=== PATIENT | male | born 1960 | race Caucasian/White ===

== ENCOUNTER → 2018-02-07 | Outpatient (CLI) | payer BC ==
--- NOTE | 2018-02-07 11:37 | US ---
EXAMINATION TYPE: US venous doppler duplex LE LT DATE OF EXAM: 02/07/2018 10:43 AM COMPARISON: NONE CLINICAL HISTORY: Left Lower Ext, Pain/numbness M79.605. Left Posterior knee and calf tingles and fee ls like it going to go to sleep. No redness or swelling. SIDE PERFORMED: Left TECHNIQUE: The lower extremity deep venous system is examined utilizing real time linear array sonog lita with graded compression, doppler sonography and color-flow sonography. VESSELS IMAGED: External Iliac Vein (EIV) Common Femoral Vein Deep Femoral Vein Greater Saphenous Vein * Femoral Vein Popliteal Vein Small Saphenous Vein * Proximal Calf Veins (* superficial vessels) Left Leg: There is normal flow, compressibility, vascular waveforms. No abnormal luminal echoes. IMPRESSION: No evident deep venous thrombosis at or above the left knee.
== END | disposition home or self-care (01) ==
LOC: RADUSWWP 10:17
PROVIDERS: ATTEND Family Medicine
DX: M79.605 Pain in left leg (principal)

== ENCOUNTER → 2018-06-14 | Outpatient (CLI) | payer BC ==
--- NOTE | 2018-06-14 13:04 | XR ---
EXAMINATION TYPE: XR chest 2V DATE OF EXAM: 06/14/2018 COMPARISON: NONE HISTORY: Shortness of breath TECHNIQUE: Frontal and lateral views of the chest are obtained. FINDINGS: Scattered senescent parenchymal changes noted. Hyperinflation compatible with COPD. No evidence for infiltrate. No evidence for atelectasis. Heart size is stable. Mediastinal structures are stable and grossly unremarkable. No evidence for hilar prominence. Degenerative changes dorsal spine. IMPRESSION: 1. No evidence for acute pulmonary disease.
== END ==
LOC: LABPAT 12:02
PROVIDERS: ATTEND Orthopaedic Surgery Orthopaedic Surgery of the Spine
DX: Z01.818 Encounter for other preprocedural examination (principal); Z01.812 Encounter for preprocedural laboratory examination; M48.00 Spinal stenosis, site unspecified
CPT/HCPCS: 71046

== ENCOUNTER 2018-06-21 11:06 | Outpatient (CLI) | payer BC ==
[2018-06-13 15:20] VITALS: BMI 23.6
[2018-06-21 10:15] VITALS: BP 121/73; PULSE 91; RESP 16; TEMP 97.8
[~2018-06-21 11:06] MED LIST: BACITRACIN 50,000 UNIT, POLYMYXIN B 500,000 UNIT in SODIUM CHLORIDE 0.9% IRRIGATIO 1,00... IRRIGATION ONE; DEXAMETHASONE SOD PHOSPHATE 10 MG/ML 1 ML VIAL IV ONE; HYDROmorphone 0.5 MG/0.5 ML SYRINGE IVP PRN; LACTATED RINGERS 1,000 ML IV SCH; MIDAZOLAM (PF) 2 MG/2 ML VIAL IV PRN; ONDANSETRON 4 MG/2 ML VIAL IVP ONE; SCOPOLAMINE 1.5MG/72HR PATCH TRANSDERM ONE; ceFAZolin IN SWFI 2 GM/20 ML SYRINGE IVP ONE
--- NOTE | 2018-06-21 11:14 | P.DS ---
Providers Date of admission: 06/21/18 09:37 Attending physician: Gian Triplett Primary care physician: [facility] Course: Patient was scheduled to have surgical intervention for his lumbar spine today for decompression at L3 4 L4 5 for his spinal stenosis and lower extremity radiculopathy with neurogenic claudication. The patient arrived to the preoperative holding area and had evaluation was found have new pressure ulcers over his lumbosacral region. Apparently those ulcers have been there over the past couple weeks and have been coming and going according to the family. I saw the patient along with his at bedside. They state that the ulcers have happened because of his pants rubbing on his waist. He says he is not having any injury or fevers or chills. Though superficial wounds seem to come and go. They have been applying some antibiotic ointment and cortisone cream to them. The patient denies any fevers or chills. Denies any injury. On exam there are 3 superficial ulcers not quite into the dermis. They are essentially around the midline and just at the paracentral region. There probably 2 x 2 centimeters in size and less than half a millimeter deep. One of the ulcerations resides directly over the L5 spinous process. There is some mild erythema around the area there is no fluid collection there is no drainage there is no weeping. His neurologic exam is unchanged. Due to the skin ulcerations at the proposed surgical site and the lack of healing over the past couple of weeks despite conservative care I think it would add risk to the post surgery today to proceed. I think we would increase potential of infection at the wound site and tested deep space and epidural space given his skin condition. I'm unsure as to whether there is specific cause for the ulcerations other than his pants rubbing on the areas as they seem to state however this is not a normal occurrence. This may be a indicator of his poor healing capacity and may also be partially due to his smoking status. I think that we should cancel the surgery today until these wounds are well- healed. We can further assess his nutritional status and his Prevacid he'll as an outpatient prior to proceeding with surgical intervention. I discussed this with him and his at bedside at length. I discussed the nature and the issues involved. I discussed the risks involved with the surgery in terms of his ulcerations and they understand. They're agreeable to cancel for today. The surgery was canceled today and he will follow up with his primary care doctor this week for further wound care and evaluation and will follow up with us in a couple weeks as the wounds heal for possible rescheduling. Patient Condition at Discharge: Fair Plan - Discharge Summary Discharge Rx Participant: No New Discharge Prescriptions: No Action No Known Home Medications Discharge Medication List No Known Home Medications 06/13/18 [History] Follow up Appointment(s)/Referral(s): Gian Triplett DO [Doctor of Osteopathic Medicine] - 2 Weeks Joselito Akbar MD [Primary Care Provider] - 3 Days (Re: Superficial wound care at low back) Activity/Diet/Wound Care/Special Instructions: Apply dry gauze over ulcer areas and keep clean. No smoking. Discharge Disposition: HOME SELF-CARE
== END 2018-06-21 11:07 | disposition home or self-care (01) ==
LOC: OR 11:06 → UNDODISIN 11:06 → OR 11:07 → EDSTATUS 17:15
PROVIDERS: ATTEND Orthopaedic Surgery Orthopaedic Surgery of the Spine
DX: M48.062 Spinal stenosis, lumbar region with neurogenic claudication (principal); L89.109 Pressure ulcer of unspecified part of back, unspecified stage; Z53.01 Procedure and treatment not carried out due to patient smoking; Z53.09 Procedure and treatment not carried out because of other contraindication; Z71.6 Tobacco abuse counseling; F17.210 Nicotine dependence, cigarettes, uncomplicated; M54.16 Radiculopathy, lumbar region; Z79.899 Other long term (current) drug therapy
CPT/HCPCS: 36415; 86850; 86900; 86901

== ENCOUNTER → 2018-07-10 | Outpatient (CLI) | payer BC ==
[2018-07-10 11:04] LABS: Appearance,Urine Clear (Clear); Basophils # (A) 0.1 k/uL (0-0.2); Basophils % (A) 1 %; Bilirubin,Urine Negative (Negative); Blood,Urine Negative (Negative); Color,Urine Light Yellow; Eosinophils # (A) 0.3 k/uL (0-0.7); Eosinophils % (A) 5 %; Glucose,Urine (UA) Negative (Negative); HCT 48.6 % (39.0-53.0); HGB 16.3 gm/dL (13.0-17.5); Ketones,Urine Negative (Negative); Leukocyte Esterase,Urine Negative (Negative); Lymphocytes # (A) 2.2 k/uL (1.0-4.8); Lymphocytes % (A) 39 %; MCH 31.2 pg (25.0-35.0); MCHC 33.5 g/dL (31.0-37.0); MCV 93.3 fL (80.0-100.0); Mean Platelet Volume 6.7; Monocytes # (A) 0.3 k/uL (0-1.0); Monocytes % (A) 5 %; Neutrophils # (A) 2.8 k/uL (1.3-7.7); Neutrophils % (A) 49 %; Nitrite,Urine Negative (Negative); Platelet Count 292 k/uL (150-450); Protein,Urine Negative (Negative); RBC 5.21 m/uL (4.30-5.90); RDW 12.1 % (11.5-15.5); Specific Gravity,Urine 1.002 (1.001-1.035); Urobilinogen,Urine <2.0 mg/dL (<2.0); WBC 5.8 k/uL (3.8-10.6)
[2018-07-10 11:09] LABS: INR 0.9 (<1.2); Partial Thromboplastin Time 24.3 sec (22.0-30.0); Prothrombin Time 9.8 sec (9.0-12.0)
[2018-07-10 11:17] LABS: Anion Gap 7 mmol/L; Blood Urea Nitrogen 6 mg/dL (9-20); Calcium 9.9 mg/dL (8.4-10.2); Carbon Dioxide 26 mmol/L (22-30); Chloride 108 mmol/L (98-107); Glucose 102 mg/dL (74-99); Potassium 4.5 mmol/L (3.5-5.1); Sodium 141 mmol/L (137-145)
== END ==
LOC: LABPAT 10:32
PROVIDERS: ATTEND Orthopaedic Surgery Orthopaedic Surgery of the Spine
DX: Z01.812 Encounter for preprocedural laboratory examination (principal); M48.00 Spinal stenosis, site unspecified
CPT/HCPCS: 36415; 80048; 81003; 85025; 85610; 85730; 87070

== ENCOUNTER → 2018-07-17 | Outpatient (CLI) | payer BC | END | disposition home or self-care (01) | LOC: LABPAT 12:08 | PROVIDERS: ATTEND Orthopaedic Surgery Orthopaedic Surgery of the Spine | DX: Z01.812 Encounter for preprocedural laboratory examination (principal) | CPT/HCPCS: 36415; 86850; 86900; 86901 ==

== ENCOUNTER 2018-07-26 10:25 | Day surgery (SDC) | payer BC ==
[2018-07-24 10:39] VITALS: BMI 23.6
[~2018-07-26 10:25] MED LIST changes: -HYDROmorphone 0.5 MG/0.5 ML SYRINGE IVP PRN; -LACTATED RINGERS 1,000 ML IV SCH; -MIDAZOLAM (PF) 2 MG/2 ML VIAL IV PRN; +MIDAZOLAM 2 MG/2 ML VIAL IV PRN
[2018-07-26] MEDS ORDERED: LACTATED RINGERS 1,000 ML IV ONE ×2 (11:19→15:45)
[2018-07-26] MEDS ORDERED: LIDOCAINE 1% 20 ML VIAL (10MG/ML) FOR IV START INTRADERMA ONE (11:19)
[2018-07-26] MEDS ORDERED: THROMBIN (BOVINE) 5,000 UNIT VIAL TOPICAL ONE (15:46)
[2018-07-26] MEDS ORDERED: LIDOCAINE 0.5%-EPI 1:200,000 50 ML VIAL SQ ONE (15:46)
[2018-07-26] MEDS ORDERED: GELATIN SPONGE,ABSORB (LARGE) 1 EACH SPONGE TOPICAL ONE (15:46)
[2018-07-26] MEDS ORDERED: HYDROcodone/APAP 5-325MG 1 EACH TAB PO PRN ×2 (17:06)
[2018-07-26] MEDS ORDERED: HYDROmorphone 1 MG/ML 1 ML SYRINGE IVP PRN ×2 (17:06)
[2018-07-26] MEDS ORDERED: HYDROmorphone 0.5 MG/0.5 ML SYRINGE IVP PRN ×2 (17:06)
[2018-07-26] MEDS ORDERED: KETOROLAC 30 MG/ML 1 ML VIAL IVP PRN (17:06)
[2018-07-26] MEDS ORDERED: IBUPROFEN 600 MG TAB PO PRN (17:06)
[2018-07-26] MEDS ORDERED: BENZOCAINE/MENTHOL LOZENG 1 EACH LOZENGE MUCOUS MEM PRN (17:06)
[2018-07-26] MEDS: HYDROmorphone 0.5 MG/0.5 ML SYRINGE IVP PRN ×3 (17:10→17:49)
--- NOTE | 2018-07-26 17:14 | P.OP ---
Date of Procedure: 07/26/18 Preoperative Diagnosis: Spinal stenosis L3 4 L4 5, neurogenic claudication bilateral lower extremity, lower extremity radiculopathy, degenerative disc disease Postoperative Diagnosis: Same Anesthesia: GETA Pathology: none sent Condition: stable Disposition: PACU Description of Procedure: BRIEF OPERATIVE NOTE Preoperative Diagnosis: Severe spinal stenosis L3 4 L4 5, degenerative disc disease L3 4 L4 5, neurogenic claudication, lower extremity radiculopathy Postoperative Diagnosis: Same Procedure: Laminectomy and decompression with wide bilateral foraminotomies L3 4 and L4 5 Placement of the interlaminar stabilization device, Coflex device at L3 4 L4 5 Surgeon: Dr. Triplett Clipper And Turner: Cristi Wisdom is present throughout the entire the case persistence during positioning, dissection, exposure, visualization, and all crucial elements of the case as well as closure. Anesthesia: General anesthesia Estimated blood loss: approximately 50 mL Complications: None apparent Components implanted: Coflex interlaminar stabilization device L3 4 and L4-5, measuring 12mm Disposition: To recovery room in good stable condition. OPERATIVE INDICATIONS The patient has been having issues in their lower back and lower extremities. he is having severe claudication symptoms due to her severe spinal stenosis at her lumbar spine particularly at L3 4 and L4 5. We discussed various treatment options. The patient has been through conservative treatment. he is not having any prolonged benefit despite aggressive conservative treatment We discussed various treatment options including surgery, ranging from laminectomy alone to the possibility of decompression with stabilization as well as the decompression and fusion. We felt that the patient could benefit with decompression and interlaminar stabilization,and the patient wishes to proceed with surgery We discussed the risk, patient's alternatives and benefits of surgery including but not limited to, risk of bleeding risk of infection, risk of need for further surgery, risk of decreased, loss of motion, loss of function , nerve damage, paralysis, heart attack, blindness and . OPERATIVE SUMMARY After discussing all the risks, patient alternatives and benefits at length, the patient elected to proceed with surgical intervention, signed informed consent, and presented for their procedure. The patient was seen and examined in the preoperative holding area and the surgical site was marked. The patient was given antibiotics and brought to the operating room. The patient was sedated and intubated by anesthesia in standard fashion. The patient was positioned on to the operating room table in a prone position on the appropriate frame which was well-padded and well molded. We were careful to pad any bony prominences and pressure points. We were careful to maintain the patient's cervical spine and good neutral alignment and position throughout. The patient was prepped and draped in a normal standard fashion. An appropriate timeout and keystone protocol performed. We were able to proceed with the surgery. Fluoroscopy was utilized to establish the appropriate level. The local wound area was infiltrated with local anesthetic. An incision was made at the midline longitudinally over the appropriate levels at L3 4 and L4 5. Dissection was taken down subcutaneously to the level of the fascia which was split midline. Dissection was taken over the lamina. Intraoperative fluoroscopy was taken which showed a marker at the appropriate level at L3 4 . With the appropriate level positively confirmed, we were able to proceed with laminectomy. The wound was copiously irrigated and suctioned dry as had been done periodically throughout the case. I performed a laminectomy with a combination of curettes and a high-speed bur and Kerrison rongeurs. A small medial facetectomy was performed again further access. A partial foraminotomy was also performed. Portions of the ligamentum flavum were taken down to expose the dura and traversing nerve root. There is severe thickening of the ligamentum flavum and significant facet hypertrophy with osteophytes causing severe central and bilateral foraminal stenosis. This was remedied with the decompression.There is no evidence of dural tear or leak. Good hemostasis maintained. The wound was copiously irrigated and suctioned dry. Good decompression was noted. This was done first at L34 and L4 5. I was unable to measure the appropriate size interlaminar stabilizing device. I was able get good alignment at the intralaminar spaces. I was able to trial with the appropriate size device and get gentle distraction at each level. I chose he is appropriate size interlaminar stabilizer. The Coflex device was positioned and malleted in place and good alignment good position with good fixation at each level. The construct was checked and found to be stable. There is good decompression without any evidence of dural tear or leak. There is no evidence of fracture. We were able to proceed with closure. The fascia was closed for a watertight closure. The subcuticular tissue was closed with absorbable suture. The wound was cleaned and dried and dressed with the appropriate dressing. The drapes were broken down. The patient was gently rolled back onto their hospital bed being careful to maintain their cervical spine and good neutral alignment and position. They were woken up by anesthesia, extubated, and brought to the recovery room in good stable condition. The patient will be admitted to the hospital for observation and for appropriate postoperative care, medical management and monitoring. We will continue to follow them closely about the postoperative course.
[2018-07-26] MEDS: LACTATED RINGERS 1,000 ML IV SCH (19:21)
[2018-07-26] MEDS: SODIUM CHLORIDE 0.9% 1,000 ML IV SCH (23:18)
[2018-07-26] MEDS: ceFAZolin IN SWFI 2 GM/20 ML SYRINGE IVP SCH (23:18)
[2018-07-27] MEDS: LACTATED RINGERS 1,000 ML IV SCH (07:02)
[2018-07-27] MEDS: SODIUM CHLORIDE 0.9% 1,000 ML IV SCH (07:02)
[2018-07-27] MEDS: ceFAZolin IN SWFI 2 GM/20 ML SYRINGE IVP SCH (07:28)
[2018-07-27 07:40] VITALS: BP 121/73; PULSE 73; RESP 17; TEMP 98
--- NOTE | 2018-07-27 08:25 | P.DS ---
Providers Date of admission: 07/26/18 Attending physician: Gian Triplett Primary care physician: Joselito Akbar Hospital Course: The patient presented on the day of admission as per their operative note. He underwent decompression laminectomy with placement of her laminar stabilizer for his severe spinal stenosis and lower extremity neurogenic claudication and radiculopathy. He feels his legs are doing better already. He has some soreness in his back is moving well. Overnight he was afebrile. He did have some drainage at his wound overnight. Physical Exam The incision site is clean and intact. There is no erythema. There is some serosanguineous drainage at the inferior aspect of the incision. It appears to be clean. It seems to be slowing down well. I changed the dressing. There is no purulence no evidence of infection. Abdomen soft and nontender. Chest has good excursion with deep inspiration and expiration. The patient has active and passive range of motion intact at the upper and lower extremities. There is no acute change in neurologic status. He has good sustained dorsal to plantar flexion and EHL intact. Hospital Course Postoperative day 1 status post decompression laminectomy L3 4 L4 5 with placement of interlaminar stabilizer for his severe spinal stenosis with lower extremity neurogenic claudication and radiculopathy. There has been some drainage at the incision site but it seems to be slowing down well and I think this okay for him to be discharged home today with appropriate wound care and dressing changes. The patient has been making good progress postoperatively. He doesn't have any current signs of any infectious process with the small drainage I will send him on some oral antibiotics over the next few days and follow him up in approximately 1 week. The patient has been able to advance their diet, and is tolerating diet adequately. The pain was initially controlled with IV medications and is now controlled appropriately with oral medications. The patient has been able to increase their mobil ization. The patient has progressed appropriately. I think they are in good stable condition for discharge today. They will be sent home with appropriate prescriptions. I answered their questions to the best of my ability in a language that they can understand and they are agreeable with the plan. They will follow up as directed. Patient Condition at Discharge: Good Plan - Discharge Summary Discharge Rx Participant: No New Discharge Prescriptions: New Acetaminophen with Codeine [Tylenol w/codeine #3] 1 - 2 tab PO Q4H PRN 3 Days #36 tab PRN Reason: Pain Discharge Medication List Acetaminophen with Codeine [Tylenol w/codeine #3] 1 - 2 tab PO Q4H PRN 3 Days #36 tab 07/26/18 [Rx] Follow up Appointment(s)/Referral(s): Gian Triplett DO [Doctor of Osteopathic Medicine] - 2 Weeks Patient Instructions/Handouts: *Surgery [facility] - ([place]) Lumbar Surgery Discharge Instructions, Pain Management After Surgery (DC) Activity/Diet/Wound Care/Special Instructions: Keep site clean. May shower with waterproof Tegaderm intact. Do not soak in a tub. After 72 hours postoperatively, patient May remove dressing and then may shower with area uncovered. Leave Steri-Strips intact and allow them to fray off on their own. May ambulate as tolerated. Avoid heavy or rigorous activity. No repetitive bending twisting or lifting. No overhead work. Discharge Disposition: HOME SELF-CARE
[2018-07-27] MEDS ORDERED: SENNOSIDES-DOCUSATE SODIUM 1 EACH TAB PO SCH (09:00)
--- NOTE | 2018-07-27 09:43 | FL ---
EXAMINATION TYPE: FL guidance operating room DATE OF EXAM: 07/26/2018 CLINICAL HISTORY: Lumbar laminectomy for back pain. TECHNIQUE: Fluoroscopy. COMPARISON: None. FINDINGS: Fluoroscopic guidance was provided during procedure performed by Dr. Triplett. A total of 3 seconds of fluoroscopic time was utilized during the procedure and 3 spot images was acquired demonst rating localization of the lumbar spine. IMPRESSION: As Above.
--- NOTE | 2018-07-27 11:26 | XR ---
EXAMINATION TYPE: XR lumbar spine 1V DATE OF EXAM: 07/26/2018 CLINICAL HISTORY: Lumbar laminectomy for back pain. TECHNIQUE: Fluoroscopy. COMPARISON: None. FINDINGS: Fluoroscopic guidance was provided during procedure performed by Dr. Triplett. A total of 3 seconds of fluoroscopic time was utilized during the procedure and 3 spot images was acquired demonst rating localization of the lumbar spine. IMPRESSION: As Above.
== END 2018-07-27 08:47 | disposition home or self-care (01) ==
LOC: OR 10:25 → 4SSUR 17:15 → OR 07-27 08:47
PROVIDERS: ATTEND Orthopaedic Surgery Orthopaedic Surgery of the Spine
DX: M48.062 Spinal stenosis, lumbar region with neurogenic claudication (principal); M51.16 Intervertebral disc disorders with radiculopathy, lumbar region; F17.210 Nicotine dependence, cigarettes, uncomplicated; E78.5 Hyperlipidemia, unspecified; R20.0 Anesthesia of skin; Z79.1 Long term (current) use of non-steroidal anti-inflammatories (NSAID); Z79.899 Other long term (current) drug therapy
CPT/HCPCS: 22867; 22868; C1821; 36415; 72020; 86850; 86900; 86901

== ENCOUNTER 2022-09-27 16:42 | Inpatient (IN) | payer BC, MEDICARE ==
[2022-09-27] MEDS ORDERED: MORPHINE SULFATE 4 MG/ML SYRINGE IV STA (16:51)
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
[2022-09-27] MEDS ORDERED: KETAMINE HCL IN 0.9 % NACL 50 MG/5 ML SYRINGE IV ONE (17:21)
[2022-09-27] MEDS ORDERED: ONDANSETRON 4 MG/2 ML VIAL IVP PRN (17:25)
[2022-09-27] MEDS ORDERED: CYCLOBENZAPRINE 10 MG TAB PO PRN (17:25)
[2022-09-27] MEDS ORDERED: SENNOSIDES 8.6 MG TAB PO PRN (17:25)
--- NOTE | 2022-09-27 17:29 | P.PN ---
Progress Note - Text Progress Note Date: 09/27/22 Spoke with ED. Reviewed Films. Distal 1/3 tibial shaft fracture with communited fibular shaft fracture. Will admit and get cleared for surgery tomorrow for nail fixation.
[2022-09-27 17:30] LABS: Basophils # (A) 0.1 k/uL (0-0.2); Basophils % (A) 1 %; Eosinophils # (A) 0.2 k/uL (0-0.7); Eosinophils % (A) 3 %; HCT 45.9 % (39.0-53.0); HGB 15.7 gm/dL (13.0-17.5); Lymphocytes # (A) 2.8 k/uL (1.0-4.8); Lymphocytes % (A) 41 %; MCH 31.3 pg (25.0-35.0); MCHC 34.3 g/dL (31.0-37.0); MCV 91.3 fL (80.0-100.0); Mean Platelet Volume 7.5; Monocytes # (A) 0.3 k/uL (0-1.0); Monocytes % (A) 5 %; Neutrophils # (A) 3.2 k/uL (1.3-7.7); Neutrophils % (A) 47 %; Platelet Count 235 k/uL (150-450); RBC 5.03 m/uL (4.30-5.90); RDW 12.1 % (11.5-15.5); WBC 6.8 k/uL (3.8-10.6)
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
[2022-09-27 17:43] LABS: African American GFR (CKD) >90 (>60 ml/min/1.73 sqM); Anion Gap 10 mmol/L; Blood Urea Nitrogen 7 mg/dL (9-20); Calcium 8.8 mg/dL (8.4-10.2); Carbon Dioxide 24 mmol/L (22-30); Chloride 98 mmol/L (98-107); Glucose 83 mg/dL (74-99); Non-African American GFR(CKD) >90 (>60 ml/min/1.73 sqM); Potassium 4.1 mmol/L (3.5-5.1); Sodium 132 mmol/L (137-145)
[2022-09-27 18:01] LABS: INR 0.9 (<1.2); Partial Thromboplastin Time 23.1 sec (22.0-30.0)
[2022-09-27] MEDS ORDERED: KETAMINE HCL IN 0.9 % NACL 50 MG/5 ML SYRINGE IV STA (18:02)
--- NOTE | 2022-09-27 19:29 | XR ---
EXAMINATION TYPE: XR tibia fibula 2 views RT DATE OF EXAM: 09/27/2022 COMPARISON: Radiograph earlier today HISTORY: 62-year-old male postsplint TECHNIQUE: 2 views FINDINGS: Interval placement of fiberglass splint. There is persistent lateral and anterior displacement of the oblique fracture distal third tibial shaft. Redemonstrated comminuted fracture along the proximal th ird fibular shaft, also relatively similar. Moderate degenerative change medial compartment of the kn ee. On the current exam, possible additional vertical fracture attention to the distal tibial metaphy sis and epiphysis to the level of the tibiotalar joint. Refer to the lateral view. IMPRESSION: 1. Interval fiberglass placement. Both bone fracture are relatively similar. 2. On the current lateral view more inferiorly, unable to exclude vertical fracture extension to the distal tibial metaphysis and epiphysis.
[2022-09-27] MEDS ORDERED: NALOXONE 0.4 MG/ML 1 ML VIAL IV PRN (19:43)
[2022-09-27] MEDS: HYDROcodone/APAP 5-325MG 1 EACH TAB PO PRN (20:51)
[2022-09-27] MEDS ORDERED: 0.9% NACL WITH KCL 20 MEQ/L 1,000 ML IV ONE (22:00)
[2022-09-27] MEDS: SODIUM CHLORIDE 0.9% 1,000 ML IV SCH (22:15)
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
[2022-09-28] MEDS: SODIUM CHLORIDE 0.9% 1,000 ML IV SCH ×3 (06:47→15:25)
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
[2022-09-28] MEDS ORDERED: LACTATED RINGERS 1,000 ML IV ONE ×2 (10:54→13:32)
[2022-09-28] MEDS ORDERED: fentaNYL (PF) 50 MCG/ML 2 ML AMP ONE (12:11)
[2022-09-28] MEDS ORDERED: SUCCINYLCHOLINE CHLORIDE 200 MG/10 ML VIAL IV ONE (12:11)
[2022-09-28] MEDS ORDERED: PROPOFOL 10 MG/ML 20 ML VIAL IV ONE (12:11)
[2022-09-28] MEDS ORDERED: KETAMINE 10 MG/ML 20 ML VIAL ONE (12:11)
[2022-09-28] MEDS ORDERED: ceFAZolin 1,000 MG VIAL ONE (12:11)
[2022-09-28] MEDS ORDERED: TRANEXAMIC ACID IN NACL,ISO-OS 1,000 MG/100 ML BAG ONE (12:11)
[2022-09-28] MEDS ORDERED: MIDAZOLAM 2 MG/2 ML VIAL ONE (12:11)
[2022-09-28] MEDS ORDERED: LIDOCAINE 2% INJ 20 MG/ML (2 ML VIAL) ONE (12:11)
[2022-09-28] MEDS ORDERED: SODIUM CHLORIDE 0.9% 100 ML BAG ONE (12:11)
[2022-09-28] MEDS ORDERED: SODIUM CHLORIDE 0.9% 100 ML with ceFAZolin 2,000 MG IV ONE ×2 (12:16)
[2022-09-28] MEDS ORDERED: BACITRACIN OINT 1 EACH PACKET TOPICAL ONE (13:48)
[2022-09-28] MEDS ORDERED: HYDROcodone/APAP 7.5-325MG 1 EACH TAB PO PRN (14:06)
[2022-09-28] MEDS ORDERED: HYDROmorphone 0.5 MG/0.5 ML SYRINGE IVP PRN (14:07)
[2022-09-28] MEDS ORDERED: HYDROmorphone 1 MG/ML 1 ML SYRINGE IVP PRN (14:07)
[2022-09-28] MEDS: MEPERIDINE 50 MG/ML SYRINGE IVP ONE ×2 (14:14→14:24)
--- NOTE | 2022-09-28 14:44 | XR ---
Fluoroscopy INDICATION: Pain FINDINGS: Fluoroscopy time: 2 minutes 27 seconds. Total dose area product (DAP) in uGy*m?, mGy*cm? (or similar): 1.8627 Images obtained: 6. IMPRESSIONS: 1. Documentation of fluoroscopy.
[2022-09-28] MEDS ORDERED: TRANEXAMIC ACID 1,000 MG in SODIUM CHLORIDE 0.9% 100 ML IVPB ONE ×4 (15:00)
[2022-09-28] MEDS: HYDROcodone/APAP 5-325MG 1 EACH TAB PO PRN (19:40)
[2022-09-29 06:12] LABS: HCT 42.1 % (39.0-53.0); HGB 13.4 gm/dL (13.0-17.5); MCH 30.4 pg (25.0-35.0); MCHC 31.9 g/dL (31.0-37.0); MCV 95.5 fL (80.0-100.0); Mean Platelet Volume 7.2; Platelet Count 215 k/uL (150-450); RBC 4.41 m/uL (4.30-5.90); RDW 11.7 % (11.5-15.5); WBC 7.1 k/uL (3.8-10.6)
[2022-09-29] MEDS: SODIUM CHLORIDE 0.9% 1,000 ML IV SCH ×2 (06:29→14:27)
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
[2022-09-29 08:32] VITALS: RESP 18
[2022-09-29] MEDS ORDERED: lisinopriL 5 MG TAB PO SCH (09:00)
[2022-09-29] MEDS ORDERED: ATORVASTATIN 40 MG TAB PO SCH (09:00)
[2022-09-29] MEDS ORDERED: ENOXAPARIN 40 MG/0.4 ML SYRINGE SQ SCH (09:00)
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
[2022-09-29 13:49] VITALS: BP 117/65; PULSE 98; TEMP 98.7
--- NOTE | 2022-09-29 13:53 | P.DS ---
Providers Date of admission: 09/27/22 19:43 Expected date of discharge: 09/29/22 Attending physician: Khoi Nieto DO Consults: 09/27/22 17:22 Consult Physician Routine Consulting Provider: Kacie Barraza Consult Reason/Comments: medicine consult Do you want consulting provider notified?: Yes Primary care physician: [facility] Hospital Course: Hospital Course: The patient was evaluated preoperatively and found to have the diagnosis of right tibia fracture. They underwent appropriate preoperative care and were willing to undergo the intended procedure. They underwent a successful right tibia suprapatellar nail fixation, were recovered appropriately and sent to the floor. While on the floor they worked with physical therapy, occupational therapy and nursing to enhance their recovery experience. Their pain was well controlled through their stay and they were started on appropriate medications, DVT ppx modalities, activity and dietary needs. Daily labs were monitored closely, and transfusions were only used when necessary. Medicine as well as other consulting services have made their input and have helped with our team approach and multidisciplinary care. PT milestones have been met and passed and they have made the recommendation of home for this patient and treating providers agree with this care path. The patient will be discharged home with appropriate medications, instructions and follow-up information and in stable condition. Patient Condition at Discharge: Serious Plan - Discharge Summary Discharge Rx Participant: No New Discharge Prescriptions: New HYDROcodone/APAP 5-325MG [[place] 5-325] 1 - 2 tab PO Q6HR PRN #56 tab PRN Reason: Pain Aspirin 325 mg PO BID #60 tab No Action lisinopriL [Zestril] 5 mg PO DAILY Cholecalciferol [Vitamin D3 (25 Mcg = 1000 Iu)] 50 mcg PO DAILY Atorvastatin Calcium [Lipitor] 40 mg PO DAILY Discharge Medication List Atorvastatin Calcium [Lipitor] 40 mg PO DAILY 09/27/22 [History] Cholecalciferol [Vitamin D3 (25 Mcg = 1000 Iu)] 50 mcg PO DAILY 09/27/22 [History] lisinopriL [Zestril] 5 mg PO DAILY 09/27/22 [History] Aspirin 325 mg PO BID #60 tab 09/29/22 [Rx] HYDROcodone/APAP 5-325MG [[place] 5-325] 1 - 2 tab PO Q6HR PRN #56 tab 09/29/22 [Rx] Follow up Appointment(s)/Referral(s): Joselito Akbar MD [Primary Care Provider] - 1-2 days Khoi Nieto DO [Doctor of Osteopathic Medicine] - 10 Days Activity/Diet/Wound Care/Special Instructions: Orthopedic Discharge Instructions: Take prescription for CAM boot to biomedical photographer facility and be fitted prior to appt. Keep splint dry and covered while showering. No soaking, pools, hot tubs. Non weight bearing of Left lower extremity with walker / crutches until follow- up. Ice and elevate when necessary. Do not exceed 20 minutes per hour with ice pack. Pain meds and anticoagulants per prescription. Pain medication has potential to cause constipation. Increase oral fluid and f iber intake. Contact primary care provider if you have not had a bowel movement within 48 hours after discharge. No anti-inflammatory medication until discussed at first post operative visit, this including Motrin, Aleve, Mobic, Diclofenac, Aspirin. Follow up in office at 2 weeks postop Follow up with your primary care doctor 7-10 days after discharge. Contact [facility] with any questions, . Discharge Disposition: HOME WITH HOME HEALTH SERVICES
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
== END 2022-09-29 15:40 | disposition home health service (06) | DRG 494 ==
LOC: EC 16:42 → 4SSUR 19:43
PROVIDERS: ADMIT Orthopaedic Surgery; ATTEND Orthopaedic Surgery
PROC: 0QSG06Z Reposition Right Tibia with Intramedullary Internal Fixation Device, Open Approach (ICD-10-PCS; principal; 2022-09-28 12:00)
DX: S82.241A Displaced spiral fracture of shaft of right tibia, initial encounter for closed fracture (principal); S82.401A Unspecified fracture of shaft of right fibula, initial encounter for closed fracture; Z28.310 Unvaccinated for COVID-19; I10 Essential (primary) hypertension; E78.5 Hyperlipidemia, unspecified; F17.210 Nicotine dependence, cigarettes, uncomplicated; Z79.899 Other long term (current) drug therapy; V86.55XA Driver of 3- or 4- wheeled all-terrain vehicle (ATV) injured in nontraffic accident, initial encounter; Y92.007 Garden or yard of unspecified non-institutional (private) residence as the place of occurrence of the external cause; Z71.6 Tobacco abuse counseling
CPT/HCPCS: 36415; 70450; 71045; 72125; 72170; 80048; 85025; 85027; 85610; 85730; 93005; 94760; 96365; 96366; 96375; 99285